=== PATIENT | male | born 1935 | race Caucasian/White ===

== ENCOUNTER 2019-01-01 06:50 | Inpatient (IN) ==
[2018-12-28 12:34] LABS: Basophils # 0.1 10*3/uL (0.0-0.2); Basophils % 1.6 % (0.0-0.8); Eosinophils # 0.4 10*3/uL (0.0-0.87); Eosinophils % 8.7 % (0.00-10.9); Hematocrit 37.8 VOL% (42.0-52.0); Hemoglobin 12.2 GM/DL (14.0-18.0); Immature Granulocytes % 0.2 %; Immature Granulocytes Absolute 0.01 #; Lymphocytes # 1.2 10*3/uL (1.4-4.0); Lymphocytes % 28.9 % (21.2-54.2); Mean Corpuscular HGB Conc 32.3 GM/DL (32-36); Mean Corpuscular Volume 90.2 FL (87-102); Mean Platelet Volume 11.5 FL (9.6-12.0); Neutrophils % 52.6 % (38.7-73.9); Platelet Count 160 T/CUMM (130-400); Red Blood Count 4.19 MC/CUMM (3.8-5.5); Red Cell Distribution Width 12.7 % (9.3-17.3); White Blood Count 4.3 T/CUMM (4-12)
[2018-12-28 13:08] LABS: Albumin 3.8 G/DL (3.4-5.0); Bilirubin,Total 0.4 MG/DL (0.2-1.0); Calcium 9.3 MG/DL (8.5-10.1); Osmolality,Calculated 297.8 MOS/KG (273-304); Total Protein 7.3 G/DL (6.4-8.3)
[~2019-01-01 06:50] MED LIST: FAMOTIDINE 20 MG TABLET ONE; LACTATED RINGERS 1,000 ML IV SCH; ceFAZolin 1,000 MG VIAL ONE; ceFAZolin 1,000 MG in SYRINGE 1 EACH IV ONE
[2019-01-01] MEDS ORDERED: FAMOTIDINE 20 MG TABLET PO STA (07:28)
[2019-01-01] MEDS ORDERED: LIDOCAINE 1% 20 ML VIAL ONE ×2 (07:54→15:38)
[2019-01-01] MEDS ORDERED: HEPARIN 5,000 UNIT/1 ML VIAL ONE ×2 (07:54→15:38)
[2019-01-01] MEDS ORDERED: TISSUE ADHESIVE 1 EACH APPLICATOR TOP ONE ×2 (07:54→15:38)
[2019-01-01] MEDS ORDERED: NALOXONE 0.4 MG/ML VIAL IV PRN (09:53)
[2019-01-01] MEDS ORDERED: DEXTROSE 10% 250 ML BAG IV PRN (09:53)
[2019-01-01] MEDS ORDERED: ONDANSETRON 4 MG/2 ML VIAL IV PRN (09:53)
[2019-01-01] MEDS ORDERED: PROMETHAZINE 25 MG/1 ML VIAL IM PRN (09:53)
[2019-01-01] MEDS ORDERED: oxyCODONE/ACETAMINOPHEN 5-325 MG TABLET PO PRN ×2 (09:53)
[2019-01-01] MEDS ORDERED: GLUCAGON 1 MG VIAL IM PRN (09:53)
[2019-01-01] MEDS ORDERED: SPIRONOLACTONE 25 MG TABLET PO PRN (09:55)
[2019-01-01] MEDS ORDERED: SEVOFLURANE 1 UNIT/15 MINUTE INH ONE ×2 (10:29→19:22)
[2019-01-01] MEDS ORDERED: LIDOCAINE 1% 5 ML VIAL ONE (10:29)
[2019-01-01] MEDS ORDERED: HEPARIN/NACL 0.9% 2 UNITS/ML 500 ML IV ONE (10:29)
[2019-01-01] MEDS ORDERED: PROPOFOL 200 MG/20 ML VIAL IV ONE ×2 (10:29→19:22)
[2019-01-01] MEDS ORDERED: LIDOCAINE 2% 5 ML VIAL ONE ×2 (10:29→19:22)
[2019-01-01] MEDS ORDERED: GLYCOPYRROLATE 0.4 MG/2 ML VIAL ONE ×2 (10:30→19:22)
[2019-01-01] MEDS ORDERED: ONDANSETRON 4 MG/2 ML VIAL ONE ×2 (10:30→19:22)
[2019-01-01] MEDS ORDERED: DEXAMETHASONE 4 MG/1 ML VIAL ONE ×2 (10:30→19:22)
[2019-01-01] MEDS ORDERED: ETOMIDATE 40 MG/20 ML VIAL IV ONE ×2 (10:30→19:22)
[2019-01-01] MEDS ORDERED: NALOXONE 0.4 MG/ML VIAL ONE (10:30)
[2019-01-01] MEDS ORDERED: fentaNYL 100 MCG/2 ML VIAL ONE (10:30)
[2019-01-01] MEDS ORDERED: ePHEDrine 50 MG/ML AMP ONE (10:30)
[2019-01-01] MEDS ORDERED: PROTAMINE SULFATE 50 MG/5 ML VIAL IV ONE (10:31)
[2019-01-01] MEDS ORDERED: SODIUM CHLORIDE 0.9% 1,000 ML IV ONE (10:31)
[2019-01-01] MEDS ORDERED: NITROGLYCERIN DRIP 50 MG/250 ML BOTTLE IV ONE (10:31)
[2019-01-01] MEDS ORDERED: NEOSTIGMINE 10 MG/10 ML VIAL ONE ×2 (10:31→19:23)
[2019-01-01] MEDS ORDERED: ROCURONIUM 100 MG/10 ML VIAL IV ONE ×2 (10:31→19:23)
[2019-01-01] MEDS ORDERED: LACTATED RINGERS 1,000 ML IV ONE (10:31)
[2019-01-01] MEDS ORDERED: hydrALAZINE 20 MG/1 ML VIAL ONE (10:52)
[2019-01-01] MEDS ORDERED: hydrALAZINE 20 MG/1 ML VIAL IV ONE (10:58)
[2019-01-01] MEDS: HYDROmorphone 2 MG/1 ML VIAL IV PRN ×4 (11:47→22:31)
[2019-01-01] MEDS ORDERED: HEPARIN 10,000 UNIT/10 ML VIAL ONE (13:28)
[2019-01-01] MEDS: LACTATED RINGERS 1,000 ML IV SCH ×2 (13:41→21:41)
[2019-01-01] MEDS ORDERED: VANCOMYCIN INJ 500 MG in SODIUM CHLORIDE 0.9% 100 ML IV ONE (15:30)
[2019-01-01 16:35] LABS: Apearance,Urine Clear (Clear); Bilirubin,Urine Negative (Negative); Blood, Urine NEGATIVE (Negative); Glucose,Urine (UA) Negative (Negative); Ketones,Urine Negative (Negative); Nitrite,Urine Negative (Negative); Protein,Urine Negative; Urine Color Yellow (Yellow); Urine Specific Gravity 1.015 (1.001-1.035); WBC,Urine <1 /HPF (0-6)
[2019-01-01 16:44] LABS: Urine Urobilinogen 0.2 EU/DL (0.2-1.0)
[2019-01-01] MEDS ORDERED: PHENYLEPHRINE 1 MG/10 ML SYRINGE IV ONE (19:22)
[2019-01-01] MEDS: PHENYLEPHRINE DRIP 40 MG/250 ML PREMIX IV SCH (19:53)
[2019-01-01] MEDS: NITROPRUSSIDE 100 MG in DEXTROSE 5% 250 ML IV SCH (19:54)
[2019-01-01] MEDS: MELOXICAM 7.5 MG TABLET PO SCH (21:41)
[2019-01-01] MEDS: carvediloL 12.5 MG TABLET PO SCH (21:41)
[2019-01-01] MEDS: GEMFIBROZIL 600 MG TABLET PO SCH (21:41)
[2019-01-02] MEDS: NITROPRUSSIDE 100 MG in DEXTROSE 5% 250 ML IV SCH ×2 (01:23→10:33)
[2019-01-02] MEDS: LACTATED RINGERS 1,000 ML IV SCH ×2 (04:23→10:00)
[2019-01-02] MEDS: MELOXICAM 7.5 MG TABLET PO SCH ×2 (08:29→21:03)
[2019-01-02] MEDS: carvediloL 12.5 MG TABLET PO SCH ×2 (08:30→21:03)
[2019-01-02] MEDS: CLOPIDOGREL 75 MG TABLET PO SCH (08:30)
[2019-01-02] MEDS: PANTOPRAZOLE 20 MG TABLET PO SCH (08:30)
[2019-01-02] MEDS: GEMFIBROZIL 600 MG TABLET PO SCH ×2 (08:30→21:03)
[2019-01-02] MEDS: ASPIRIN CHEW 81 MG TABLET PO SCH (08:30)
[2019-01-02] MEDS ORDERED: ASPIRIN EC 81 MG TABLET PO SCH (09:00)
[2019-01-03] MEDS: GEMFIBROZIL 600 MG TABLET PO SCH ×2 (09:49→21:27)
[2019-01-03] MEDS: ASPIRIN CHEW 81 MG TABLET PO SCH (09:49)
[2019-01-03] MEDS: PANTOPRAZOLE 20 MG TABLET PO SCH (09:49)
[2019-01-03] MEDS: CLOPIDOGREL 75 MG TABLET PO SCH (09:49)
[2019-01-03] MEDS: carvediloL 12.5 MG TABLET PO SCH ×2 (09:49→21:26)
[2019-01-03] MEDS: MELOXICAM 7.5 MG TABLET PO SCH ×2 (09:50→21:26)
[2019-01-03] MEDS ORDERED: SODIUM PHOSPHATE ENEMA 133 ML BOTTLE RECTAL ONE ×2 (16:55→16:58)
[2019-01-03] MEDS ORDERED: TAMSULOSIN 0.4 MG CAPSULE PO SCH ×2 (21:00)
[2019-01-04] MEDS: PHENYLEPHRINE DRIP 40 MG/250 ML PREMIX IV SCH (07:59)
[2019-01-04] MEDS ORDERED: FINASTERIDE 5 MG TABLET PO SCH ×2 (09:00)
[2019-01-04] MEDS: MELOXICAM 7.5 MG TABLET PO SCH (10:01)
[2019-01-04] MEDS: CLOPIDOGREL 75 MG TABLET PO SCH (10:03)
[2019-01-04] MEDS: PANTOPRAZOLE 20 MG TABLET PO SCH (10:03)
[2019-01-04] MEDS: GEMFIBROZIL 600 MG TABLET PO SCH (10:03)
[2019-01-04] MEDS: carvediloL 12.5 MG TABLET PO SCH (10:03)
[2019-01-04] MEDS: ASPIRIN CHEW 81 MG TABLET PO SCH (10:03)
[2019-01-04 12:11] VITALS: BP 95/45
== END 2019-01-04 16:15 | disposition swing bed (61) | DRG 38 ==
LOC: N.SDSINP 06:50 → N.ICU 11:05 → N.3E 01-02 13:28
PROVIDERS: ADMIT Surgery; ATTEND Surgery

== ENCOUNTER 2019-02-07 12:44 | Inpatient (IN) ==
[2019-02-07] MEDS ORDERED: SODIUM CHLORIDE 0.9% 1,000 ML IV STA ×2 (13:00→14:08)
[2019-02-07 13:58] LABS: Basophils # 0.1 10*3/uL (0.0-0.2); Basophils % 1.3 % (0.0-0.8); Eosinophils # 0.1 10*3/uL (0.0-0.87); Eosinophils % 0.6 % (0.00-10.9); Hemoglobin 8.8 GM/DL (14.0-18.0); Immature Granulocytes % 0.6 %; Immature Granulocytes Absolute 0.05 #; Lymphocytes # 1.9 10*3/uL (1.4-4.0); Lymphocytes % 22.4 % (21.2-54.2); Mean Corpuscular HGB Conc 31.4 GM/DL (32-36); Mean Corpuscular Volume 88.3 FL (87-102); Mean Platelet Volume 11.6 FL (9.6-12.0); Monocytes % 4.1 % (1.7-12.7); Platelet Count 247 T/CUMM (130-400); Red Blood Count 3.17 MC/CUMM (3.8-5.5); Red Cell Distribution Width 12.4 % (9.3-17.3); White Blood Count 8.7 T/CUMM (4-12)
[2019-02-07 14:08] LABS: Albumin 3.2 G/DL (3.4-5.0); Bilirubin,Total 0.5 MG/DL (0.2-1.0); Calcium 8.7 MG/DL (8.5-10.1); Osmolality,Calculated 303.5 MOS/KG (273-304); Total Protein 6.1 G/DL (6.4-8.3)
[2019-02-07] MEDS ORDERED: ALUM/MAG/SIMETH/LIDO VISC 1:1 30 ML BOTTLE PO STA (14:32)
[2019-02-07] MEDS ORDERED: ALUM/MAG/SIMETH/LIDO VISC 1:1 30 ML BOTTLE PO ONE (14:33)
[2019-02-07 14:42] LABS: Apearance,Urine CLEAR (Clear); Bilirubin,Urine Negative (Negative); Blood, Urine Negative (Negative); Glucose,Urine (UA) 50 mg/dL (Negative); Hyaline Casts,Urine 1 /LPF (0-3); Ketones,Urine Negative (Negative); Mucus,Urine Occasional /LPF (Occasional); Nitrite,Urine Negative (Negative); Protein,Urine Negative; RBC,Urine 1 /HPF (0-4); Urine Color Yellow (Yellow); Urine Specific Gravity 1.023 (1.001-1.035); Urine Urobilinogen < 2.0 EU/DL (0.2-1.0); WBC,Urine <1 /HPF (0-6)
[2019-02-07] MEDS ORDERED: ONDANSETRON 4 MG/2 ML VIAL IV PRN (16:20)
[2019-02-07] MEDS: PANTOPRAZOLE 40 MG VIAL IV SCH (17:32)
[2019-02-07] MEDS: SODIUM CHLORIDE 0.9% 1,000 ML IV SCH (17:33)
[2019-02-07] MEDS ORDERED: SPIRONOLACTONE 25 MG TABLET PO PRN (18:46)
[2019-02-07 19:50] LABS: Basophils % 0.4 % (0.0-0.8); Hematocrit 19.9 VOL% (42.0-52.0); Immature Granulocytes % 0.6 %; Immature Granulocytes Absolute 0.05 #; Lymphocytes # 2.2 10*3/uL (1.4-4.0); Lymphocytes % 29.1 % (21.2-54.2); Mean Corpuscular HGB Conc 31.2 GM/DL (32-36); Mean Corpuscular Volume 87.7 FL (87-102); Mean Platelet Volume 11.4 FL (9.6-12.0); Monocytes % 2.7 % (1.7-12.7); Neutrophils % 67.2 % (38.7-73.9); Platelet Count 189 T/CUMM (130-400); Red Blood Count 2.27 MC/CUMM (3.8-5.5); Red Cell Distribution Width 12.4 % (9.3-17.3); White Blood Count 7.7 T/CUMM (4-12)
[2019-02-07] MEDS ORDERED: FUROSEMIDE 20 MG/2 ML VIAL IV ONE (19:53)
[2019-02-07 19:58] LABS: Hemoglobin 6.2 GM/DL (14.0-18.0)
[2019-02-07] MEDS: ACETAMINOPHEN 325 MG TABLET PO PRN (21:48)
[2019-02-07] MEDS: GEMFIBROZIL 600 MG TABLET PO SCH (22:20)
[2019-02-07] MEDS: carvediloL 12.5 MG TABLET PO SCH (22:20)
[2019-02-08] MEDS: oxyCODONE/ACETAMINOPHEN 5-325 MG TABLET PO PRN ×3 (00:02→23:34)
[2019-02-08] MEDS ORDERED: FUROSEMIDE 20 MG/2 ML VIAL IV ONE (02:30)
[2019-02-08 05:26] LABS: Hemoglobin 8.1 GM/DL (14.0-18.0)
[2019-02-08 05:30] LABS: Basophils % 0.2 % (0.0-0.8); Hematocrit 25.1 VOL% (42.0-52.0); Hemoglobin 8.2 GM/DL (14.0-18.0); Immature Granulocytes % 0.9 %; Immature Granulocytes Absolute 0.09 #; Lymphocytes # 1.5 10*3/uL (1.4-4.0); Lymphocytes % 15.1 % (21.2-54.2); Mean Corpuscular HGB Conc 32.7 GM/DL (32-36); Mean Platelet Volume 11.7 FL (9.6-12.0); Monocytes % 7.9 % (1.7-12.7); Neutrophils % 75.9 % (38.7-73.9); Platelet Count 157 T/CUMM (130-400); Red Blood Count 2.82 MC/CUMM (3.8-5.5); Red Cell Distribution Width 13.1 % (9.3-17.3); White Blood Count 10.1 T/CUMM (4-12)
[2019-02-08 06:07] LABS: Albumin 2.7 G/DL (3.4-5.0); Bilirubin,Total 0.8 MG/DL (0.2-1.0); Calcium 8.2 MG/DL (8.5-10.1); Osmolality,Calculated 316.6 MOS/KG (273-304); Total Protein 5.4 G/DL (6.4-8.3)
[2019-02-08 06:18] LABS: Risk Ratio 5.5; Thyroid Stimulating Hormone 0.687 uIU/ml (0.358-3.74)
[2019-02-08] MEDS ORDERED: SODIUM CHLORIDE 0.9% 1,000 ML IV PRN (07:29)
[2019-02-08] MEDS ORDERED: MAGNESIUM SULF RIDER 2 GM in PREMIX 1 EACH IV PRN (07:31)
[2019-02-08] MEDS ORDERED: clonazePAM 0.5 MG TABLET PO PRN (07:46)
[2019-02-08] MEDS ORDERED: ZALEPLON 5 MG CAPSULE PO PRN (07:50)
[2019-02-08 08:21] LABS: Hematocrit 24.5 VOL% (42.0-52.0)
[2019-02-08] MEDS ORDERED: LOSARTAN 50 MG TABLET PO SCH (09:00)
[2019-02-08] MEDS: PANTOPRAZOLE 40 MG VIAL IV SCH (09:35)
[2019-02-08] MEDS: carvediloL 12.5 MG TABLET PO SCH ×2 (09:35→16:15)
[2019-02-08] MEDS: NIACIN 500 MG TABLET PO SCH (09:35)
[2019-02-08] MEDS: FINASTERIDE 5 MG TABLET PO SCH (09:36)
[2019-02-08] MEDS: GEMFIBROZIL 600 MG TABLET PO SCH ×2 (09:36→20:21)
[2019-02-08] MEDS: TAMSULOSIN 0.4 MG CAPSULE PO SCH (09:36)
[2019-02-08] MEDS ORDERED: PROPOFOL 200 MG/20 ML VIAL IV ONE (10:00)
[2019-02-08] MEDS ORDERED: ETOMIDATE 20 MG/10 ML VIAL IV ONE (10:00)
[2019-02-08] MEDS ORDERED: LIDOCAINE 100 MG/5 ML SYRINGE ONE (10:00)
[2019-02-08 15:29] LABS: Hematocrit 26.5 VOL% (42.0-52.0); Hemoglobin 8.6 GM/DL (14.0-18.0)
[2019-02-08] MEDS: SODIUM CHLORIDE 0.9% 1,000 ML IV SCH (16:08)
[2019-02-09] MEDS: ACETAMINOPHEN 325 MG TABLET PO PRN (01:34)
[2019-02-09 04:33] LABS: Basophils % 0.4 % (0.0-0.8); Eosinophils # 0.1 10*3/uL (0.0-0.87); Eosinophils % 1.3 % (0.00-10.9); Hematocrit 24.2 VOL% (42.0-52.0); Immature Granulocytes % 0.6 %; Immature Granulocytes Absolute 0.06 #; Mean Corpuscular HGB Conc 33.1 GM/DL (32-36); Mean Corpuscular Volume 85.5 FL (87-102); Mean Platelet Volume 11.5 FL (9.6-12.0); Monocytes % 6.5 % (1.7-12.7); Neutrophils % 70.2 % (38.7-73.9); Platelet Count 122 T/CUMM (130-400); Red Blood Count 2.83 MC/CUMM (3.8-5.5); Red Cell Distribution Width 13.6 % (9.3-17.3); White Blood Count 9.3 T/CUMM (4-12)
[2019-02-09 05:07] LABS: Albumin 2.6 G/DL (3.4-5.0); Bilirubin,Total 1.1 MG/DL (0.2-1.0); Calcium 8.2 MG/DL (8.5-10.1); Osmolality,Calculated 306.6 MOS/KG (273-304)
[2019-02-09] MEDS: oxyCODONE/ACETAMINOPHEN 5-325 MG TABLET PO PRN ×3 (05:15→21:18)
[2019-02-09] MEDS: SODIUM CHLORIDE 0.9% 1,000 ML IV SCH ×3 (05:16→15:03)
[2019-02-09] MEDS: FINASTERIDE 5 MG TABLET PO SCH (09:08)
[2019-02-09] MEDS: GEMFIBROZIL 600 MG TABLET PO SCH ×2 (09:08→21:18)
[2019-02-09] MEDS: TAMSULOSIN 0.4 MG CAPSULE PO SCH (09:08)
[2019-02-09] MEDS: NIACIN 500 MG TABLET PO SCH (09:08)
[2019-02-09] MEDS: carvediloL 12.5 MG TABLET PO SCH ×2 (09:08→16:26)
[2019-02-09] MEDS: PANTOPRAZOLE 40 MG VIAL IV SCH (09:10)
[2019-02-09 10:43] LABS: Hematocrit 22.5 VOL% (42.0-52.0); Hemoglobin 7.4 GM/DL (14.0-18.0)
[2019-02-09] MEDS ORDERED: SODIUM CHLORIDE 0.9% 1,000 ML IV PRN ×2 (11:55→12:01)
[2019-02-10] MEDS: oxyCODONE/ACETAMINOPHEN 5-325 MG TABLET PO PRN ×3 (04:09→20:18)
[2019-02-10 06:19] LABS: Basophils # 0.1 10*3/uL (0.0-0.2); Basophils % 0.9 % (0.0-0.8); Eosinophils # 0.2 10*3/uL (0.0-0.87); Eosinophils % 3.7 % (0.00-10.9); Hematocrit 27.7 VOL% (42.0-52.0); Hemoglobin 9.2 GM/DL (14.0-18.0); Immature Granulocytes % 0.4 %; Immature Granulocytes Absolute 0.02 #; Lymphocytes # 1.4 10*3/uL (1.4-4.0); Lymphocytes % 25.7 % (21.2-54.2); Mean Corpuscular HGB Conc 33.2 GM/DL (32-36); Mean Corpuscular Volume 87.1 FL (87-102); Mean Platelet Volume 11.1 FL (9.6-12.0); Monocytes % 6.9 % (1.7-12.7); Neutrophils % 62.4 % (38.7-73.9); Platelet Count 108 T/CUMM (130-400); Red Blood Count 3.18 MC/CUMM (3.8-5.5); Red Cell Distribution Width 13.7 % (9.3-17.3); White Blood Count 5.4 T/CUMM (4-12)
[2019-02-10] MEDS: NIACIN 500 MG TABLET PO SCH (08:45)
[2019-02-10] MEDS: TAMSULOSIN 0.4 MG CAPSULE PO SCH (08:45)
[2019-02-10] MEDS: FINASTERIDE 5 MG TABLET PO SCH (08:45)
[2019-02-10] MEDS: GEMFIBROZIL 600 MG TABLET PO SCH ×2 (08:45→20:18)
[2019-02-10] MEDS: carvediloL 12.5 MG TABLET PO SCH ×2 (08:45→16:07)
[2019-02-10] MEDS: SODIUM CHLORIDE 0.9% 1,000 ML IV SCH ×3 (08:46→16:44)
[2019-02-10] MEDS: PANTOPRAZOLE 40 MG VIAL IV SCH (08:48)
[2019-02-11] MEDS: SODIUM CHLORIDE 0.9% 1,000 ML IV SCH ×2 (02:24→11:26)
[2019-02-11] MEDS: NIACIN 500 MG TABLET PO SCH (09:00)
[2019-02-11] MEDS: PANTOPRAZOLE 40 MG VIAL IV SCH (09:00)
[2019-02-11] MEDS: TAMSULOSIN 0.4 MG CAPSULE PO SCH (09:00)
[2019-02-11] MEDS: oxyCODONE/ACETAMINOPHEN 5-325 MG TABLET PO PRN ×2 (09:00→20:38)
[2019-02-11] MEDS: FINASTERIDE 5 MG TABLET PO SCH (09:00)
[2019-02-11] MEDS: GEMFIBROZIL 600 MG TABLET PO SCH ×2 (09:01→20:38)
[2019-02-11] MEDS: carvediloL 12.5 MG TABLET PO SCH ×2 (09:01→16:37)
[2019-02-11 10:05] LABS: Hemoglobin 9.1 GM/DL (14.0-18.0)
[2019-02-12] MEDS: SODIUM CHLORIDE 0.9% 1,000 ML IV SCH ×2 (01:00→10:47)
[2019-02-12 06:05] LABS: Basophils % 0.9 % (0.0-0.8); Eosinophils # 0.2 10*3/uL (0.0-0.87); Eosinophils % 4.8 % (0.00-10.9); Hematocrit 27.1 VOL% (42.0-52.0); Hemoglobin 8.8 GM/DL (14.0-18.0); Immature Granulocytes % 0.4 %; Immature Granulocytes Absolute 0.02 #; Lymphocytes # 1.5 10*3/uL (1.4-4.0); Lymphocytes % 32.4 % (21.2-54.2); Mean Corpuscular HGB Conc 32.5 GM/DL (32-36); Mean Corpuscular Volume 89.7 FL (87-102); Mean Platelet Volume 11.5 FL (9.6-12.0); Neutrophils % 53.5 % (38.7-73.9); Platelet Count 105 T/CUMM (130-400); Red Blood Count 3.02 MC/CUMM (3.8-5.5); Red Cell Distribution Width 13.9 % (9.3-17.3); White Blood Count 4.6 T/CUMM (4-12)
[2019-02-12 07:12] LABS: Calcium 7.8 MG/DL (8.5-10.1); Osmolality,Calculated 281.3 MOS/KG (273-304)
[2019-02-12] MEDS ORDERED: PANTOPRAZOLE 40 MG TABLET PO SCH (09:00)
[2019-02-12] MEDS: GEMFIBROZIL 600 MG TABLET PO SCH (10:43)
[2019-02-12] MEDS: TAMSULOSIN 0.4 MG CAPSULE PO SCH (10:43)
[2019-02-12] MEDS: FINASTERIDE 5 MG TABLET PO SCH (10:43)
[2019-02-12] MEDS: NIACIN 500 MG TABLET PO SCH (10:43)
[2019-02-12] MEDS: carvediloL 12.5 MG TABLET PO SCH (10:46)
[2019-02-12 11:55] VITALS: BP 164/55
== END 2019-02-12 14:37 | disposition home or self-care (01) | DRG 378 ==
LOC: N.ED 12:44 → N.EDINP 14:49 → N.2E 15:57
PROVIDERS: ADMIT Family Medicine; ATTEND Family Medicine

== ENCOUNTER 2019-03-14 09:36 | Inpatient (IN) ==
[2019-03-14] MEDS ORDERED: SODIUM CHLORIDE 0.9% 500 ML IV STA (10:03)
[2019-03-14 10:15] LABS: Basophils # 0.1 10*3/uL (0.0-0.2); Basophils % 1.6 % (0.0-0.8); Eosinophils # 0.1 10*3/uL (0.0-0.87); Eosinophils % 2.5 % (0.00-10.9); Hematocrit 30.6 VOL% (42.0-52.0); Hemoglobin 9.5 GM/DL (14.0-18.0); Immature Granulocytes % 0.4 %; Immature Granulocytes Absolute 0.02 #; Lymphocytes # 1.3 10*3/uL (1.4-4.0); Lymphocytes % 25.6 % (21.2-54.2); Mean Corpuscular Volume 84.3 FL (87-102); Mean Platelet Volume 11.1 FL (9.6-12.0); Monocytes % 6.7 % (1.7-12.7); Neutrophils % 63.2 % (38.7-73.9); Platelet Count 211 T/CUMM (130-400); Red Blood Count 3.63 MC/CUMM (3.8-5.5); White Blood Count 4.9 T/CUMM (4-12)
[2019-03-14 10:23] LABS: INR 1.1; PT Patient Result 11.5 SECS (9.6-12.2)
[2019-03-14 10:39] LABS: Albumin 3.3 G/DL (3.4-5.0); Bilirubin,Total 0.5 MG/DL (0.2-1.0); Calcium 9.4 MG/DL (8.5-10.1); Osmolality,Calculated 283.5 MOS/KG (273-304)
[2019-03-14] MEDS ORDERED: ACETAMINOPHEN 325 MG TABLET PO PRN (10:55)
[2019-03-14] MEDS ORDERED: ONDANSETRON 4 MG/2 ML VIAL IV PRN (10:55)
[2019-03-14 13:57] LABS: Hemoglobin 9.9 GM/DL (14.0-18.0)
[2019-03-14] MEDS ORDERED: TAMSULOSIN 0.4 MG CAPSULE PO SCH (14:00)
[2019-03-14] MEDS: SODIUM CHLORIDE 0.9% 1,000 ML IV SCH ×2 (14:10→21:44)
[2019-03-14 16:59] LABS: Apearance,Urine CLEAR (Clear); Bilirubin,Urine Negative (Negative); Blood, Urine Negative (Negative); Glucose,Urine (UA) Negative (Negative); Ketones,Urine Negative (Negative); Mucus,Urine Occasional /LPF (Occasional); Nitrite,Urine Negative (Negative); Protein,Urine Negative; RBC,Urine <1 /HPF (0-4); Urine Color Yellow (Yellow); Urine Specific Gravity 1.014 (1.001-1.035); Urine Urobilinogen < 2.0 EU/DL (0.2-1.0)
[2019-03-14] MEDS: carvediloL 12.5 MG TABLET PO SCH (20:30)
[2019-03-14] MEDS: POTASSIUM CHLORIDE 10 MEQ TABLET PO SCH (20:30)
[2019-03-14] MEDS: gemfibroziL 600 MG TABLET PO SCH (20:30)
[2019-03-14] MEDS: TAMSULOSIN 0.4 MG CAPSULE PO SCH (20:30)
[2019-03-14] MEDS: DOCUSATE SODIUM 100 MG CAPSULE PO SCH (20:32)
[2019-03-14] MEDS: oxyCODONE/ACETAMINOPHEN 5-325 MG TABLET PO PRN (21:40)
[2019-03-15 05:27] LABS: Basophils # 0.1 10*3/uL (0.0-0.2); Basophils % 1.1 % (0.0-0.8); Eosinophils # 0.2 10*3/uL (0.0-0.87); Eosinophils % 4.3 % (0.00-10.9); Hematocrit 24.3 VOL% (42.0-52.0); Hemoglobin 7.5 GM/DL (14.0-18.0); Immature Granulocytes % 0.4 %; Immature Granulocytes Absolute 0.02 #; Lymphocytes # 1.6 10*3/uL (1.4-4.0); Lymphocytes % 33.4 % (21.2-54.2); Mean Corpuscular HGB Conc 30.9 GM/DL (32-36); Mean Platelet Volume 11.1 FL (9.6-12.0); Neutrophils % 51.8 % (38.7-73.9); Platelet Count 170 T/CUMM (130-400); Red Blood Count 2.86 MC/CUMM (3.8-5.5); White Blood Count 4.7 T/CUMM (4-12)
[2019-03-15 05:30] LABS: Hematocrit 23.8 VOL% (42.0-52.0); Hemoglobin 7.5 GM/DL (14.0-18.0)
[2019-03-15] MEDS: SODIUM CHLORIDE 0.9% 1,000 ML IV SCH (05:31)
[2019-03-15 06:00] LABS: Calcium 8.4 MG/DL (8.5-10.1); Osmolality,Calculated 294.4 MOS/KG (273-304); Thyroid Stimulating Hormone 2.14 uIU/ml (0.358-3.74)
[2019-03-15] MEDS ORDERED: SODIUM CHLORIDE 0.9% 1,000 ML IV PRN (07:45)
[2019-03-15] MEDS ORDERED: MAGNESIUM SULF RIDER 2 GM in PREMIX 1 EACH IV PRN (07:48)
[2019-03-15 08:25] LABS: Hematocrit 25.5 VOL% (42.0-52.0); Hemoglobin 7.8 GM/DL (14.0-18.0)
[2019-03-15] MEDS: NIACIN 500 MG TABLET PO SCH (09:09)
[2019-03-15] MEDS: FINASTERIDE 5 MG TABLET PO SCH (09:10)
[2019-03-15] MEDS: LOSARTAN 50 MG TABLET PO SCH (09:10)
[2019-03-15] MEDS: gemfibroziL 600 MG TABLET PO SCH ×2 (09:10→20:30)
[2019-03-15] MEDS: DOCUSATE SODIUM 100 MG CAPSULE PO SCH ×2 (09:11→20:37)
[2019-03-15] MEDS: carvediloL 12.5 MG TABLET PO SCH ×2 (09:11→20:30)
[2019-03-15] MEDS: POTASSIUM CHLORIDE 10 MEQ TABLET PO SCH ×2 (09:11→21:34)
[2019-03-15] MEDS: OMEGA 3 ACID ETHYL ESTERS 1 GM CAPSULE PO SCH (09:12)
[2019-03-15 09:50] LABS: Hematocrit 26.9 VOL% (42.0-52.0); Hemoglobin 8.1 GM/DL (14.0-18.0)
[2019-03-15] MEDS: PANTOPRAZOLE 40 MG TABLET PO SCH (11:26)
[2019-03-15 16:54] LABS: Hematocrit 30.7 VOL% (42.0-52.0); Hemoglobin 9.5 GM/DL (14.0-18.0)
[2019-03-15] MEDS: MAGNESIUM SULF INJ 2 GM in SODIUM CHLORIDE 0.9% 1,000 ML IV SCH (16:54)
[2019-03-15 19:31] LABS: Hematocrit 29.4 VOL% (42.0-52.0); Hemoglobin 9.2 GM/DL (14.0-18.0)
[2019-03-15] MEDS: TAMSULOSIN 0.4 MG CAPSULE PO SCH (20:30)
[2019-03-15] MEDS: oxyCODONE/ACETAMINOPHEN 5-325 MG TABLET PO PRN (21:34)
[2019-03-16] MEDS: MAGNESIUM SULF INJ 2 GM in SODIUM CHLORIDE 0.9% 1,000 ML IV SCH (05:32)
[2019-03-16 05:45] LABS: Basophils # 0.1 10*3/uL (0.0-0.2); Basophils % 1.1 % (0.0-0.8); Eosinophils # 0.2 10*3/uL (0.0-0.87); Eosinophils % 5.3 % (0.00-10.9); Hematocrit 26.5 VOL% (42.0-52.0); Hemoglobin 8.4 GM/DL (14.0-18.0); Immature Granulocytes % 0.5 %; Immature Granulocytes Absolute 0.02 #; Lymphocytes # 1.7 10*3/uL (1.4-4.0); Lymphocytes % 39.2 % (21.2-54.2); Mean Corpuscular HGB Conc 31.7 GM/DL (32-36); Mean Corpuscular Volume 85.5 FL (87-102); Mean Platelet Volume 11.6 FL (9.6-12.0); Monocytes % 8.9 % (1.7-12.7); Platelet Count 148 T/CUMM (130-400); Red Cell Distribution Width 14.2 % (9.3-17.3); White Blood Count 4.4 T/CUMM (4-12)
[2019-03-16 05:51] LABS: Calcium 8.4 MG/DL (8.5-10.1)
[2019-03-16] MEDS: POTASSIUM CHLORIDE 10 MEQ TABLET PO SCH ×2 (09:41→20:21)
[2019-03-16] MEDS: carvediloL 12.5 MG TABLET PO SCH ×2 (09:41→20:22)
[2019-03-16] MEDS: gemfibroziL 600 MG TABLET PO SCH ×2 (09:41→20:22)
[2019-03-16] MEDS: NIACIN 500 MG TABLET PO SCH (09:41)
[2019-03-16] MEDS: FINASTERIDE 5 MG TABLET PO SCH (09:41)
[2019-03-16] MEDS: LOSARTAN 50 MG TABLET PO SCH (09:41)
[2019-03-16] MEDS: PANTOPRAZOLE 40 MG TABLET PO SCH (09:42)
[2019-03-16] MEDS: OMEGA 3 ACID ETHYL ESTERS 1 GM CAPSULE PO SCH (09:42)
[2019-03-16] MEDS: DOCUSATE SODIUM 100 MG CAPSULE PO SCH ×2 (11:16→20:46)
[2019-03-16 15:42] LABS: Hemoglobin 9.3 GM/DL (14.0-18.0)
[2019-03-16] MEDS: TAMSULOSIN 0.4 MG CAPSULE PO SCH (20:22)
[2019-03-16] MEDS: oxyCODONE/ACETAMINOPHEN 5-325 MG TABLET PO PRN (21:59)
[2019-03-17] MEDS: MAGNESIUM SULF INJ 2 GM in SODIUM CHLORIDE 0.9% 1,000 ML IV SCH (01:37)
[2019-03-17 05:54] LABS: Hematocrit 24.3 VOL% (42.0-52.0); Hemoglobin 7.7 GM/DL (14.0-18.0)
[2019-03-17 05:56] LABS: Basophils # 0.1 10*3/uL (0.0-0.2); Basophils % 1.3 % (0.0-0.8); Eosinophils # 0.2 10*3/uL (0.0-0.87); Eosinophils % 5.6 % (0.00-10.9); Hematocrit 24.4 VOL% (42.0-52.0); Hemoglobin 7.6 GM/DL (14.0-18.0); Immature Granulocytes % 0.3 %; Immature Granulocytes Absolute 0.01 #; Lymphocytes # 1.5 10*3/uL (1.4-4.0); Lymphocytes % 39.5 % (21.2-54.2); Mean Corpuscular HGB Conc 31.1 GM/DL (32-36); Mean Corpuscular Volume 86.2 FL (87-102); Mean Platelet Volume 11.5 FL (9.6-12.0); Monocytes % 9.2 % (1.7-12.7); Neutrophils % 44.1 % (38.7-73.9); Platelet Count 146 T/CUMM (130-400); Red Blood Count 2.83 MC/CUMM (3.8-5.5); Red Cell Distribution Width 14.5 % (9.3-17.3); White Blood Count 3.9 T/CUMM (4-12)
[2019-03-17 06:28] LABS: Calcium 8.3 MG/DL (8.5-10.1); Osmolality,Calculated 291.4 MOS/KG (273-304)
[2019-03-17 07:11] LABS: Hematocrit 26.6 VOL% (42.0-52.0); Hemoglobin 8.3 GM/DL (14.0-18.0)
[2019-03-17] MEDS: PANTOPRAZOLE 40 MG TABLET PO SCH (09:04)
[2019-03-17] MEDS: FINASTERIDE 5 MG TABLET PO SCH (09:04)
[2019-03-17] MEDS: LOSARTAN 50 MG TABLET PO SCH (09:05)
[2019-03-17] MEDS: gemfibroziL 600 MG TABLET PO SCH ×2 (09:05→20:40)
[2019-03-17] MEDS: OMEGA 3 ACID ETHYL ESTERS 1 GM CAPSULE PO SCH (09:05)
[2019-03-17] MEDS: NIACIN 500 MG TABLET PO SCH (09:05)
[2019-03-17] MEDS: carvediloL 12.5 MG TABLET PO SCH ×2 (09:05→20:40)
[2019-03-17] MEDS: POTASSIUM CHLORIDE 10 MEQ TABLET PO SCH ×2 (09:07→20:38)
[2019-03-17] MEDS: DOCUSATE SODIUM 100 MG CAPSULE PO SCH ×2 (09:07→21:09)
[2019-03-17 15:47] LABS: Hematocrit 27.5 VOL% (42.0-52.0); Hemoglobin 8.7 GM/DL (14.0-18.0)
[2019-03-17] MEDS: TAMSULOSIN 0.4 MG CAPSULE PO SCH (20:39)
[2019-03-17] MEDS: oxyCODONE/ACETAMINOPHEN 5-325 MG TABLET PO PRN (22:04)
[2019-03-18 05:46] LABS: Hemoglobin 7.7 GM/DL (14.0-18.0)
[2019-03-18] MEDS: MAGNESIUM SULF INJ 2 GM in SODIUM CHLORIDE 0.9% 1,000 ML IV SCH ×2 (07:26→11:46)
[2019-03-18] MEDS ORDERED: SODIUM CHLORIDE 0.9% 1,000 ML IV PRN (07:31)
[2019-03-18] MEDS ORDERED: FUROSEMIDE 40 MG/4 ML VIAL IV ONE (07:33)
[2019-03-18] MEDS: NIACIN 500 MG TABLET PO SCH (09:39)
[2019-03-18] MEDS: OMEGA 3 ACID ETHYL ESTERS 1 GM CAPSULE PO SCH (09:40)
[2019-03-18] MEDS: POTASSIUM CHLORIDE 10 MEQ TABLET PO SCH ×2 (09:40→21:11)
[2019-03-18] MEDS: FINASTERIDE 5 MG TABLET PO SCH (09:40)
[2019-03-18] MEDS: gemfibroziL 600 MG TABLET PO SCH ×2 (09:40→21:11)
[2019-03-18] MEDS: LOSARTAN 50 MG TABLET PO SCH (09:40)
[2019-03-18] MEDS: carvediloL 12.5 MG TABLET PO SCH ×2 (09:41→21:11)
[2019-03-18] MEDS: DOCUSATE SODIUM 100 MG CAPSULE PO SCH ×2 (09:41→21:18)
[2019-03-18] MEDS: PANTOPRAZOLE 40 MG TABLET PO SCH (09:41)
[2019-03-18] MEDS ORDERED: BISACODYL 5 MG TABLET PO ONE (12:00)
[2019-03-18] MEDS ORDERED: POLYETHYLENE GLYCOL POWDER 255 GM BOTTLE PO ONE (14:00)
[2019-03-18] MEDS: TAMSULOSIN 0.4 MG CAPSULE PO SCH (21:17)
[2019-03-18] MEDS: oxyCODONE/ACETAMINOPHEN 5-325 MG TABLET PO PRN (23:53)
[2019-03-19 05:03] LABS: INR 1.1; PT Patient Result 11.6 SECS (9.6-12.2)
[2019-03-19 05:04] LABS: Basophils % 0.8 % (0.0-0.8); Eosinophils # 0.2 10*3/uL (0.0-0.87); Eosinophils % 4.5 % (0.00-10.9); Hematocrit 32.5 VOL% (42.0-52.0); Hemoglobin 10.2 GM/DL (14.0-18.0); Immature Granulocytes % 0.4 %; Immature Granulocytes Absolute 0.02 #; Lymphocytes # 1.5 10*3/uL (1.4-4.0); Lymphocytes % 29.9 % (21.2-54.2); Mean Corpuscular HGB Conc 31.4 GM/DL (32-36); Mean Platelet Volume 11.4 FL (9.6-12.0); Monocytes % 8.8 % (1.7-12.7); Neutrophils % 55.6 % (38.7-73.9); Platelet Count 164 T/CUMM (130-400); Red Blood Count 3.78 MC/CUMM (3.8-5.5); Red Cell Distribution Width 14.7 % (9.3-17.3); White Blood Count 5.1 T/CUMM (4-12)
[2019-03-19 05:40] LABS: Bilirubin,Total 0.9 MG/DL (0.2-1.0); Calcium 8.8 MG/DL (8.5-10.1); Osmolality,Calculated 280.1 MOS/KG (273-304); Total Protein 5.8 G/DL (6.4-8.3)
[2019-03-19] MEDS ORDERED: MAGNESIUM CITRATE 300 ML BOTTLE PO ONE (06:00)
[2019-03-19] MEDS ORDERED: LACTATED RINGERS 1,000 ML IV SCH (08:00)
[2019-03-19] MEDS ORDERED: LIDOCAINE 2% 5 ML VIAL ONE (09:00)
[2019-03-19] MEDS ORDERED: propofoL 200 MG/20 ML VIAL IV ONE (09:00)
[2019-03-19] MEDS: LOSARTAN 50 MG TABLET PO SCH (09:46)
[2019-03-19] MEDS: POTASSIUM CHLORIDE 10 MEQ TABLET PO SCH ×2 (09:46→20:58)
[2019-03-19] MEDS: gemfibroziL 600 MG TABLET PO SCH ×2 (09:46→20:58)
[2019-03-19] MEDS: DOCUSATE SODIUM 100 MG CAPSULE PO SCH ×2 (09:46→20:58)
[2019-03-19] MEDS: FINASTERIDE 5 MG TABLET PO SCH (09:47)
[2019-03-19] MEDS: NIACIN 500 MG TABLET PO SCH (09:47)
[2019-03-19] MEDS: OMEGA 3 ACID ETHYL ESTERS 1 GM CAPSULE PO SCH (09:47)
[2019-03-19] MEDS: PANTOPRAZOLE 40 MG TABLET PO SCH (09:47)
[2019-03-19] MEDS: carvediloL 12.5 MG TABLET PO SCH ×2 (09:49→20:58)
[2019-03-19] MEDS: MAGNESIUM SULF INJ 2 GM in SODIUM CHLORIDE 0.9% 1,000 ML IV SCH (14:24)
[2019-03-19 16:38] LABS: Hematocrit 32.6 VOL% (42.0-52.0); Hemoglobin 10.3 GM/DL (14.0-18.0)
[2019-03-19] MEDS: TAMSULOSIN 0.4 MG CAPSULE PO SCH (20:58)
[2019-03-19] MEDS: oxyCODONE/ACETAMINOPHEN 5-325 MG TABLET PO PRN (22:51)
[2019-03-20 05:39] LABS: Basophils # 0.1 10*3/uL (0.0-0.2); Basophils % 1.2 % (0.0-0.8); Eosinophils # 0.2 10*3/uL (0.0-0.87); Eosinophils % 5.5 % (0.00-10.9); Hematocrit 32.1 VOL% (42.0-52.0); Hemoglobin 10.1 GM/DL (14.0-18.0); Immature Granulocytes % 0.2 %; Immature Granulocytes Absolute 0.01 #; Lymphocytes # 1.5 10*3/uL (1.4-4.0); Lymphocytes % 34.6 % (21.2-54.2); Mean Corpuscular HGB Conc 31.5 GM/DL (32-36); Mean Corpuscular Volume 85.6 FL (87-102); Mean Platelet Volume 11.2 FL (9.6-12.0); Monocytes % 9.3 % (1.7-12.7); Neutrophils % 49.2 % (38.7-73.9); Platelet Count 161 T/CUMM (130-400); Red Blood Count 3.75 MC/CUMM (3.8-5.5); Red Cell Distribution Width 15.1 % (9.3-17.3); White Blood Count 4.2 T/CUMM (4-12)
[2019-03-20] MEDS: FINASTERIDE 5 MG TABLET PO SCH (09:17)
[2019-03-20] MEDS: POTASSIUM CHLORIDE 10 MEQ TABLET PO SCH (09:17)
[2019-03-20] MEDS: LOSARTAN 50 MG TABLET PO SCH (09:17)
[2019-03-20] MEDS: OMEGA 3 ACID ETHYL ESTERS 1 GM CAPSULE PO SCH (09:17)
[2019-03-20] MEDS: NIACIN 500 MG TABLET PO SCH (09:17)
[2019-03-20] MEDS: gemfibroziL 600 MG TABLET PO SCH (09:17)
[2019-03-20] MEDS: carvediloL 12.5 MG TABLET PO SCH (09:18)
[2019-03-20] MEDS: PANTOPRAZOLE 40 MG TABLET PO SCH (09:18)
[2019-03-20] MEDS: DOCUSATE SODIUM 100 MG CAPSULE PO SCH (09:19)
[2019-03-20 09:59] VITALS: BP 189/64
== END 2019-03-20 10:39 | disposition home health service (06) | DRG 813 ==
LOC: N.ED 09:36 → N.EDINP 09:36 → N.2E 12:19
PROVIDERS: ADMIT Family Medicine; ATTEND Family Medicine

== ENCOUNTER 2021-03-17 17:35 | Inpatient (IN) ==
[2021-03-17] MEDS ORDERED: PANTOPRAZOLE 40 MG VIAL IV STA (18:28)
[2021-03-17] MEDS ORDERED: ONDANSETRON 4 MG/2 ML VIAL IV STA (18:28)
[2021-03-17] MEDS ORDERED: SODIUM CHLORIDE 0.9% 500 ML IV STA (18:28)
[2021-03-17 18:33] LABS: Basophils % 0.6 % (0.0-0.8); Eosinophils % 0.2 % (0.00-10.9); Hematocrit 32.9 VOL% (42.0-52.0); Hemoglobin 10.4 GM/DL (14.0-18.0); Immature Granulocytes % 0.6 %; Immature Granulocytes Absolute 0.04 #; Lymphocytes # 1.1 10*3/uL (1.4-4.0); Mean Corpuscular HGB Conc 31.6 GM/DL (32-36); Mean Corpuscular Volume 92.7 FL (87-102); Mean Platelet Volume 11.3 FL (9.6-12.0); Neutrophils % 78.6 % (38.7-73.9); Platelet Count 210 T/CUMM (130-400); Red Blood Count 3.55 MC/CUMM (3.8-5.5); Red Cell Distribution Width 13.2 % (9.3-17.3); White Blood Count 6.3 T/CUMM (4-12)
[2021-03-17 18:47] LABS: Albumin 3.6 G/DL (3.4-5.0); Bilirubin,Total 0.4 MG/DL (0.20-1.00); Calcium 9.2 MG/DL (8.5-10.1); Osmolality,Calculated 304.4 MOS/KG (273-304)
[2021-03-17 18:56] LABS: Potassium 6.8 MMOL/L (3.5-5.1)
[2021-03-17 18:56] LABS: INR 1.1; PT Patient Result 12.6 SECS (10.5-12.0)
[2021-03-17] MEDS ORDERED: INSULIN REGULAR 10 UNIT, CALCIUM GLUCONATE 1,000 MG in DEXTROSE 10% 250 ML IV ONE (19:18)
[2021-03-17] MEDS ORDERED: MAGNESIUM SULF RIDER 2 GM/50 ML PREMIX IV STA (19:18)
[2021-03-17 19:55] LABS: Calcium 7.1 MG/DL (8.5-10.1); Osmolality,Calculated 309.6 MOS/KG (273-304); Potassium 5.4 MMOL/L (3.5-5.1)
[2021-03-17] MEDS ORDERED: ONDANSETRON 4 MG/2 ML VIAL IV PRN (20:42)
[2021-03-17] MEDS ORDERED: MORPHINE 2 MG/1 ML SYRINGE IV PRN (20:42)
[2021-03-17] MEDS ORDERED: SODIUM CHLORIDE 0.9% 1,000 ML IV SCH (21:00)
[2021-03-17] MEDS: DOCUSATE SODIUM 100 MG CAPSULE PO SCH (21:18)
[2021-03-18 06:27] LABS: Basophils % 0.6 % (0.0-0.8); Eosinophils # 0.1 10*3/uL (0.0-0.87); Eosinophils % 1.9 % (0.00-10.9); Hematocrit 28.7 VOL% (42.0-52.0); Hemoglobin 9.5 GM/DL (14.0-18.0); Immature Granulocytes % 0.3 %; Immature Granulocytes Absolute 0.02 #; Lymphocytes # 2.1 10*3/uL (1.4-4.0); Mean Corpuscular HGB Conc 33.1 GM/DL (32-36); Mean Corpuscular Volume 91.7 FL (87-102); Mean Platelet Volume 11.1 FL (9.6-12.0); Monocytes % 7.3 % (1.7-12.7); Neutrophils % 57.9 % (38.7-73.9); Platelet Count 170 T/CUMM (130-400); Red Blood Count 3.13 MC/CUMM (3.8-5.5); Red Cell Distribution Width 13.3 % (9.3-17.3); White Blood Count 6.7 T/CUMM (4-12)
[2021-03-18 06:51] LABS: Alanine Aminotransferase 14 U/L (16-61); Albumin 3.2 G/DL (3.4-5.0); Alkaline Phosphatase 49 U/L (45-117); Aspartate Amino Transferase 14 U/L (0-37); Bilirubin,Total < 0.39 MG/DL (0.20-1.00); Blood Urea Nitrogen 81 MG/DL (7-18); Calcium 9.5 MG/DL (8.5-10.1); Carbon Dioxide 20 MMOL/L (21-32); Estimated Glom Filtration Rate 55 ML/MIN; Glucose 85 MG/DL (74-106); HDL Cholesterol 18 MG/DL (40-60); Osmolality,Calculated 305.1 MOS/KG (273-304); Potassium 5.3 MMOL/L (3.5-5.1); Risk Ratio 7.06; Sodium 142 MMOL/L (136-145); Total Protein 6.4 G/DL (6.4-8.2); Triglycerides 359 MG/DL (2-150); VLDL Cholesterol 71.8 MG/DL
[2021-03-18] MEDS ORDERED: oxyCODONE/ACETAMINOPHEN 5-325 MG TABLET PO PRN (07:42)
[2021-03-18] MEDS: FINASTERIDE 5 MG TABLET PO SCH (09:06)
[2021-03-18] MEDS: carvediloL 12.5 MG TABLET PO SCH ×2 (09:06→21:07)
[2021-03-18] MEDS: gemfibroziL 600 MG TABLET PO SCH ×2 (09:06→21:07)
[2021-03-18] MEDS: TAMSULOSIN 0.4 MG CAPSULE PO SCH (09:06)
[2021-03-18] MEDS: MULTIVITAMIN (CENTRUM) TABLET PO SCH (09:06)
[2021-03-18] MEDS: LOSARTAN 50 MG TABLET PO SCH (09:06)
[2021-03-18] MEDS: DOCUSATE SODIUM 100 MG CAPSULE PO SCH ×2 (09:06→21:07)
[2021-03-18] MEDS: PANTOPRAZOLE 40 MG VIAL IV SCH (09:07)
[2021-03-18] MEDS: SODIUM CHLORIDE 0.9% 1,000 ML IV SCH ×2 (09:09→19:10)
[2021-03-18 13:31] LABS: Basophils # 0.1 10*3/uL (0.0-0.2); Basophils % 0.9 % (0.0-0.8); Eosinophils # 0.1 10*3/uL (0.0-0.87); Eosinophils % 1.1 % (0.00-10.9); Hematocrit 27.9 VOL% (42.0-52.0); Hemoglobin 8.8 GM/DL (14.0-18.0); Immature Granulocytes % 0.8 %; Immature Granulocytes Absolute 0.05 #; Lymphocytes # 1.2 10*3/uL (1.4-4.0); Lymphocytes % 18.5 % (21.2-54.2); Mean Corpuscular HGB Conc 31.5 GM/DL (32-36); Mean Corpuscular Volume 94.6 FL (87-102); Mean Platelet Volume 10.8 FL (9.6-12.0); Monocytes % 3.8 % (1.7-12.7); Neutrophils % 74.9 % (38.7-73.9); Platelet Count 161 T/CUMM (130-400); Red Blood Count 2.95 MC/CUMM (3.8-5.5); Red Cell Distribution Width 13.3 % (9.3-17.3); White Blood Count 6.4 T/CUMM (4-12)
[2021-03-18 21:59] LABS: Hematocrit 25.5 VOL% (42.0-52.0); Hemoglobin 8.2 GM/DL (14.0-18.0)
[2021-03-19 01:06] LABS: Bilirubin,Urine Negative (Negative); Blood, Urine Negative (Negative); Glucose,Urine (UA) Negative (Negative); Ketones,Urine Negative (Negative); Nitrite,Urine Negative (Negative); Protein,Urine Negative; RBC,Urine 1 /HPF (0-4); Urine Appearance CLEAR (Clear); Urine Color Yellow (Yellow); Urine Specific Gravity 1.014 (1.001-1.035); Urine Urobilinogen < 2.0 EU/DL (<2.0)
[2021-03-19] MEDS: SODIUM CHLORIDE 0.9% 1,000 ML IV SCH ×2 (05:10→22:18)
[2021-03-19 05:12] LABS: Basophils # 0.1 10*3/uL (0.0-0.2); Basophils % 0.8 % (0.0-0.8); Eosinophils # 0.2 10*3/uL (0.0-0.87); Eosinophils % 2.2 % (0.00-10.9); Hematocrit 26.5 VOL% (42.0-52.0); Hemoglobin 8.5 GM/DL (14.0-18.0); Immature Granulocytes % 0.4 %; Immature Granulocytes Absolute 0.03 #; Lymphocytes # 1.6 10*3/uL (1.4-4.0); Mean Corpuscular HGB Conc 32.1 GM/DL (32-36); Mean Corpuscular Volume 92.3 FL (87-102); Mean Platelet Volume 10.9 FL (9.6-12.0); Monocytes % 6.5 % (1.7-12.7); Neutrophils % 67.1 % (38.7-73.9); Platelet Count 154 T/CUMM (130-400); Red Blood Count 2.87 MC/CUMM (3.8-5.5); Red Cell Distribution Width 13.3 % (9.3-17.3); White Blood Count 7.1 T/CUMM (4-12)
[2021-03-19 05:42] LABS: Bilirubin,Total 0.9 MG/DL (0.20-1.00); Calcium 9.1 MG/DL (8.5-10.1); Osmolality,Calculated 294.4 MOS/KG (273-304); Potassium 5.1 MMOL/L (3.5-5.1); Thyroid Stimulating Hormone 2.59 uIU/ml (0.358-3.74); Total Protein 6.1 G/DL (6.4-8.2)
[2021-03-19] MEDS: NIACIN ER 500 MG TABLET PO SCH ×2 (07:13→09:35)
[2021-03-19] MEDS: ACETAMINOPHEN 325 MG TABLET PO PRN ×2 (09:34→20:35)
[2021-03-19] MEDS: FINASTERIDE 5 MG TABLET PO SCH (09:35)
[2021-03-19] MEDS: DOCUSATE SODIUM 100 MG CAPSULE PO SCH ×2 (09:35→20:36)
[2021-03-19] MEDS: TAMSULOSIN 0.4 MG CAPSULE PO SCH (09:35)
[2021-03-19] MEDS: carvediloL 12.5 MG TABLET PO SCH ×2 (09:35→20:36)
[2021-03-19] MEDS: gemfibroziL 600 MG TABLET PO SCH ×2 (09:35→20:36)
[2021-03-19] MEDS: LOSARTAN 50 MG TABLET PO SCH (09:35)
[2021-03-19] MEDS: PANTOPRAZOLE 40 MG VIAL IV SCH (09:35)
[2021-03-19] MEDS: MULTIVITAMIN (CENTRUM) TABLET PO SCH (09:35)
[2021-03-20] MEDS: SODIUM CHLORIDE 0.9% 1,000 ML IV SCH (06:14)
[2021-03-20 07:03] LABS: Basophils # 0.1 10*3/uL (0.0-0.2); Basophils % 1.3 % (0.0-0.8); Eosinophils # 0.2 10*3/uL (0.0-0.87); Eosinophils % 4.1 % (0.00-10.9); Hematocrit 24.4 VOL% (42.0-52.0); Hemoglobin 7.7 GM/DL (14.0-18.0); Immature Granulocytes % 0.5 %; Immature Granulocytes Absolute 0.02 #; Lymphocytes # 1.6 10*3/uL (1.4-4.0); Lymphocytes % 41.6 % (21.2-54.2); Mean Corpuscular HGB Conc 31.6 GM/DL (32-36); Mean Corpuscular Volume 93.5 FL (87-102); Mean Platelet Volume 11.7 FL (9.6-12.0); Neutrophils % 43.5 % (38.7-73.9); Platelet Count 137 T/CUMM (130-400); Red Blood Count 2.61 MC/CUMM (3.8-5.5); Red Cell Distribution Width 13.2 % (9.3-17.3); White Blood Count 3.9 T/CUMM (4-12)
[2021-03-20 07:37] LABS: Alanine Aminotransferase 15 U/L (16-61); Albumin 2.9 G/DL (3.4-5.0); Alkaline Phosphatase 57 U/L (45-117); Aspartate Amino Transferase 22 U/L (0-37); Bilirubin,Total < 0.39 MG/DL (0.20-1.00); Blood Urea Nitrogen 52 MG/DL (7-18); Calcium 8.8 MG/DL (8.5-10.1); Carbon Dioxide 19 MMOL/L (21-32); Estimated Glom Filtration Rate 50 ML/MIN; Glucose 100 MG/DL (74-106); Osmolality,Calculated 286.8 MOS/KG (273-304); Potassium 4.5 MMOL/L (3.5-5.1); Sodium 137 MMOL/L (136-145); Total Protein 6.1 G/DL (6.4-8.2)
[2021-03-20] MEDS: DOCUSATE SODIUM 100 MG CAPSULE PO SCH ×2 (09:01→20:03)
[2021-03-20] MEDS: TAMSULOSIN 0.4 MG CAPSULE PO SCH (09:01)
[2021-03-20] MEDS: LOSARTAN 50 MG TABLET PO SCH (09:02)
[2021-03-20] MEDS: gemfibroziL 600 MG TABLET PO SCH ×2 (09:02→20:03)
[2021-03-20] MEDS: MULTIVITAMIN (CENTRUM) TABLET PO SCH (09:02)
[2021-03-20] MEDS: FINASTERIDE 5 MG TABLET PO SCH (09:02)
[2021-03-20] MEDS: carvediloL 12.5 MG TABLET PO SCH ×2 (09:02→20:03)
[2021-03-20] MEDS: PANTOPRAZOLE 40 MG VIAL IV SCH (09:02)
[2021-03-20] MEDS: NIACIN ER 500 MG TABLET PO SCH (09:02)
[2021-03-20 11:14] LABS: Hematocrit 24.9 VOL% (42.0-52.0); Hemoglobin 7.9 GM/DL (14.0-18.0)
[2021-03-21] MEDS: SODIUM CHLORIDE 0.9% 1,000 ML IV SCH ×3 (03:59→17:58)
[2021-03-21 06:31] LABS: Basophils # 0.1 10*3/uL (0.0-0.2); Basophils % 1.3 % (0.0-0.8); Eosinophils # 0.2 10*3/uL (0.0-0.87); Eosinophils % 5.1 % (0.00-10.9); Hematocrit 24.2 VOL% (42.0-52.0); Hemoglobin 7.7 GM/DL (14.0-18.0); Immature Granulocytes % 0.5 %; Immature Granulocytes Absolute 0.02 #; Lymphocytes # 1.7 10*3/uL (1.4-4.0); Lymphocytes % 42.9 % (21.2-54.2); Mean Corpuscular HGB Conc 31.8 GM/DL (32-36); Mean Corpuscular Volume 93.1 FL (87-102); Mean Platelet Volume 11.3 FL (9.6-12.0); Monocytes % 8.5 % (1.7-12.7); Neutrophils % 41.7 % (38.7-73.9); Platelet Count 143 T/CUMM (130-400); Red Cell Distribution Width 13.2 % (9.3-17.3); White Blood Count 3.9 T/CUMM (4-12)
[2021-03-21 07:00] LABS: Calcium 8.5 MG/DL (8.5-10.1); Osmolality,Calculated 291.3 MOS/KG (273-304); Potassium 4.4 MMOL/L (3.5-5.1)
[2021-03-21] MEDS: PANTOPRAZOLE 40 MG VIAL IV SCH (09:04)
[2021-03-21] MEDS: MULTIVITAMIN (CENTRUM) TABLET PO SCH (09:05)
[2021-03-21] MEDS: LOSARTAN 50 MG TABLET PO SCH (09:05)
[2021-03-21] MEDS: gemfibroziL 600 MG TABLET PO SCH ×2 (09:05→20:33)
[2021-03-21] MEDS: carvediloL 12.5 MG TABLET PO SCH ×2 (09:05→20:32)
[2021-03-21] MEDS: TAMSULOSIN 0.4 MG CAPSULE PO SCH (09:05)
[2021-03-21] MEDS: FINASTERIDE 5 MG TABLET PO SCH (09:05)
[2021-03-21] MEDS: DOCUSATE SODIUM 100 MG CAPSULE PO SCH ×2 (09:05→20:32)
[2021-03-21] MEDS: NIACIN ER 500 MG TABLET PO SCH (09:06)
[2021-03-21] MEDS ORDERED: MAGNESIUM SULF RIDER 4 GM/100 ML PREMIX IV PRN (11:18)
[2021-03-21] MEDS ORDERED: MAGNESIUM SULF RIDER 2 GM/50 ML PREMIX IV PRN (11:18)
[2021-03-21] MEDS ORDERED: SODIUM CHLORIDE 0.9% 1,000 ML IV PRN (11:24)
[2021-03-21] MEDS: ACETAMINOPHEN 325 MG TABLET PO PRN (22:39)
[2021-03-22 05:38] LABS: Eosinophils # 0.2 10*3/uL (0.0-0.87); Eosinophils % 5.7 % (0.00-10.9); Hematocrit 27.8 VOL% (42.0-52.0); Immature Granulocytes % 0.7 %; Immature Granulocytes Absolute 0.03 #; Lymphocytes # 1.6 10*3/uL (1.4-4.0); Mean Corpuscular HGB Conc 32.4 GM/DL (32-36); Mean Corpuscular Volume 92.4 FL (87-102); Mean Platelet Volume 11.5 FL (9.6-12.0); Monocytes % 8.6 % (1.7-12.7); Platelet Count 146 T/CUMM (130-400); Red Blood Count 3.01 MC/CUMM (3.8-5.5); Red Cell Distribution Width 13.2 % (9.3-17.3); White Blood Count 4.2 T/CUMM (4-12)
[2021-03-22 05:55] LABS: Albumin 2.8 G/DL (3.4-5.0); Bilirubin,Total 0.5 MG/DL (0.20-1.00); Calcium 8.7 MG/DL (8.5-10.1); Osmolality,Calculated 289.3 MOS/KG (273-304); Potassium 4.5 MMOL/L (3.5-5.1); Total Protein 5.9 G/DL (6.4-8.2)
[2021-03-22 08:13] VITALS: BP 170/64
[2021-03-22] MEDS ORDERED: PANTOPRAZOLE 40 MG TABLET PO SCH (09:00)
[2021-03-22] MEDS: gemfibroziL 600 MG TABLET PO SCH (09:35)
[2021-03-22] MEDS: TAMSULOSIN 0.4 MG CAPSULE PO SCH (09:35)
[2021-03-22] MEDS: carvediloL 12.5 MG TABLET PO SCH (09:35)
[2021-03-22] MEDS: MULTIVITAMIN (CENTRUM) TABLET PO SCH (09:35)
[2021-03-22] MEDS: FINASTERIDE 5 MG TABLET PO SCH (09:35)
[2021-03-22] MEDS: LOSARTAN 50 MG TABLET PO SCH (09:36)
[2021-03-22] MEDS: NIACIN ER 500 MG TABLET PO SCH (09:36)
[2021-03-22] MEDS: PANTOPRAZOLE 40 MG VIAL IV SCH (09:36)
[2021-03-22] MEDS: DOCUSATE SODIUM 100 MG CAPSULE PO SCH (09:36)
== END 2021-03-22 13:31 | disposition home or self-care (01) | DRG 812 ==
LOC: N.ED 17:35 → N.EDINP 17:35 → N.5E 03-18 00:59
PROVIDERS: ADMIT Family Medicine; ATTEND Family Medicine